=== PATIENT | male | born 1955 | race Caucasian/White ===

== ENCOUNTER 2018-08-14 13:04 | Outpatient (CLI) | payer OTHER ==
--- NOTE | 2018-08-20 16:11 | ULT ---
LOWER EXTREMITY ARTERIAL EVALUATION USING DOPPLER WAVEFORM ANALYSIS AND SEGMENTAL LIMB PRESSURES 08/14/18 Examination today reveals normal Doppler waveforms bilaterally at all levels of the leg with normal a nkle-arm index of greater than 1 and normal toe-brachial index. This will be considered a normal resting arterial study and not consistent with any significant vascu lar claudication.
== END 2018-08-14 13:05 | disposition home or self-care (01) ==
LOC: ULT 13:04
PROVIDERS: ATTEND Nurse Practitioner Family
DX: I73.9 Peripheral vascular disease, unspecified (principal)
CPT/HCPCS: 93922

== ENCOUNTER 2018-09-16 09:58 | Outpatient (CLI) | payer OTHER ==
--- NOTE | 2018-09-16 11:09 | CT ---
LOW DOSE SCREENING CT CHEST: Date: 09/16/18 HISTORY: Personal history of nicotine dependence, current smoker of greater than 40 years. TECHNIQUE: Routine noncontrast low-dose screening chest CT performed with coronal and sagittal reform atted imaging. FINDINGS: Nonspecific mildly prominent lymph nodes are noted in the AP window and paratracheal regions, measuri ng up to 1 cm in short axis dimension, upper limits of normal. Limited assessment of the visualized upper abdomen is unremarkable. There is mild scattered atherosclerotic calcification of the aortic arch and descending thoracic aort a. No pleural, pericardial, or mediastinal fluid. There are scattered centrilobular emphysematous changes noted with an upper lobe predominance, right greater than left. There is no dominant pulmonary parenchymal mass lesion or nodule within the right lung. There is no d ominant pulmonary parenchymal mass lesion or nodule within the left lung. Review of the osseous structures demonstrates no worrisome lytic or blastic bone lesion. IMPRESSION: Lung RADS category 1-negative. Continue annual screening with low-dose chest CT in 12 months. Transcribed Date/Time: 09/16/2018 11:55 AM
== END 2018-09-16 09:59 | disposition home or self-care (01) ==
LOC: CT 09:58
PROVIDERS: ATTEND Internal Medicine Hematology & Oncology
DX: F17.210 Nicotine dependence, cigarettes, uncomplicated (principal)
CPT/HCPCS: G0297

== ENCOUNTER 2018-10-25 06:21 | Day surgery (SDC) | payer OTHER ==
--- NOTE | 2018-10-24 11:00 | HP ---
HISTORY OF PRESENT ILLNESS: Mr. Finn Coffman is a 63-year-old male, comes for a colonoscopy for colon cancer screening. The patient has no specific GI symptoms. His bowel movements are regular. He does have family history of colon cancer. ALLERGIES: NONE. MEDICAL ILLNESSES: Hyperlipidemia. SURGERIES: None. SOCIAL HISTORY: The patient smokes a pack of cigarettes per day. He drinks alcohol socially. PHYSICAL EXAMINATION: VITAL SIGNS: Pulse is 70, blood pressure 130/70. HEENT: Conjunctivae are clear. CARDIOVASCULAR: First and second heart sounds are normal. LUNGS: Clear to auscultation. ABDOMEN: Soft. No organomegaly. No tenderness. No masses. EXTREMITIES: Reveal no edema. ADMITTING DIAGNOSIS: A 63-year-old male, comes for a colonoscopy for colon cancer screening. Job ID: [id number]
[2018-10-24 11:37] VITALS: BMI 30.1
--- NOTE | 2018-10-25 10:34 | OP ---
DATE OF PROCEDURE: 10/25/2018 PROCEDURES PERFORMED: Colonoscopy with polypectomy. PREOPERATIVE DIAGNOSIS: Colon cancer. POSTOPERATIVE DIAGNOSES: 1. Sessile sigmoid polyp, status post snare cautery with good hemostasis. 2. A long pedunculated polyp with a thick stalk in sigmoid colon, status post snare cautery with good hemostasis. 3. Hemorrhoids. PROCEDURES PERFORMED: Colonoscopy with polypectomy. DESCRIPTION OF PROCEDURE: The patient was placed on his left lateral position and was given sedation by Anesthesia Department. A rectal exam was done before the scope was advanced into the rectum. No lesions felt on rectal exam. A [employer]ax video colonoscope was introduced into the rectum and advanced all the way into the cecum. The prep was good. The mucosa appears normal throughout the colon with normal vascular pattern. In the appendiceal orifice, ileocecal wall, and cecum, no pathology. Withdrawal of scope from cecum to ascending colon, hepatic flexure, no pathology seen. In the transverse colon, splenic flexure, and descending colon, no pathology. The patient had a large polyp on a thick stalk. The stalk was quite long and very thick. This was seen in sigmoid colon area. This was removed with snare cautery with good hemostasis. Another small sessile polyp over the sigmoid colon removed with snare cautery with good hemostasis. Retroflexion of scope in the rectum showed hemorrhoids. DISCHARGE PLANNING: This is a 63-year-old male, came for a colonoscopy for colon cancer screening. He underwent colonoscopic polypectomy x2. DISCHARGE RECOMMENDATION: 1. The patient advised to call me if he develops abdominal pain, hematochezia. 2. To come back to clinic in 2 weeks. Job ID: [id number]
== END 2018-10-25 10:00 | disposition home or self-care (01) ==
LOC: SDC 06:21
PROVIDERS: ATTEND Internal Medicine Gastroenterology
PROC: 0DBN8ZZ Excision of Sigmoid Colon, Via Natural or Artificial Opening Endoscopic (ICD-10-PCS; principal; 2018-10-25)
DX: Z12.11 Encounter for screening for malignant neoplasm of colon (principal); D12.5 Benign neoplasm of sigmoid colon; K63.5 Polyp of colon; K64.9 Unspecified hemorrhoids; E78.5 Hyperlipidemia, unspecified; F17.210 Nicotine dependence, cigarettes, uncomplicated; Z80.0 Family history of malignant neoplasm of digestive organs
CPT/HCPCS: 88305

== ENCOUNTER 2022-07-17 20:16 | Emergency (ER) | payer OTHER ==
[2022-07-17 20:47] LABS: #Basophils 0.1 thou/uL (0.0-0.2); #Eosinphils 0.4 thou/uL (0.0-0.7); #Monocytes 0.8 thou/uL (0.11-0.59); #Neutrophils 8.3 thou/uL (1.40-6.50); %Basophils 0.6 % (0.0-1.0); %Eosinophils 3.1 % (0.0-10.0); %Lymphocytes 17.5 % (21.0-51.0); %Monocytes 6.6 % (0.0-10.0); %Neutrophils 72.1 % (42.0-75.0); Hemoglobin 14.9 g/dL (14.0-18.0); Mean Corpuscular Hemoglobin 29.1 pg (27.0-31.0); Mean Corpuscular Volume 88.2 fl (78.0-98.0); Mean Platelet Volume 8.9 fL (7.4-10.4); Platelet Count 241 10x3/uL (130-400); RBC Distribution Width 12.8 % (11.5-14.5); Red Blood Cell (RBC) Count 5.13 mill/uL (4.70-6.10); White Blood Cell (WBC) Count 11.6 10x3/uL (4.8-10.8)
[2022-07-17 21:11] LABS: ALT (SGPT) 53 U/L (8-55); AST (SGOT) 38 U/L (5-34); Albumin 3.8 g/dL (3.4-4.8); Alkaline Phosphatase 117 U/L (40-110); Anion Gap 12 mmol/L (10-20); BUN (Urea Nitrogen) 12 mg/dL (8.4-25.7); Bilirubin, Total 0.4 mg/dL (0.2-1.2); CK (CPK) 85 U/L (30-200); Calc. Creatinine Clearance 0 mL/min (70-130); Calcium 9.6 mg/dL (7.8-10.44); Carbon Dioxide 23 mmol/L (23-31); Chloride 107 mmol/L (98-107); Estimated GFR 94; Globulin 3.3 g/dL (2.4-3.5); Glucose 117 mg/dL (80-115); Lipase 32 U/L (8-78); Potassium 4.1 mmol/L (3.5-5.1); Protein, Total 7.1 g/dL (5.8-8.1); Sodium 138 mmol/L (136-145)
== END 2022-07-17 22:46 | disposition home or self-care (01) ==
LOC: ERS 20:16
DX: R53.1 Weakness (principal); R00.1 Bradycardia, unspecified; D72.829 Elevated white blood cell count, unspecified; F17.210 Nicotine dependence, cigarettes, uncomplicated; Z79.82 Long term (current) use of aspirin
CPT/HCPCS: 36415; 70450; 80048; 82550; 83690; 83735; 83880; 84484; 85025; 93005

== ENCOUNTER 2022-11-24 06:19 | Day surgery (SDC) | payer OTHER ==
[2022-11-09 13:10] VITALS: BMI 32.1
[2022-11-24] MEDS ORDERED: Clindamycin/D5W 600 mg/50 ml Premix Bag ONE (06:58)
[2022-11-24] MEDS ORDERED: CEFAZOLIN 1 GM VIAL ONE ×2 (06:58→08:29)
[2022-11-24] MEDS ORDERED: Gentamicin 80 MG/2 ML VIAL ONE ×2 (06:58→08:29)
[2022-11-24] MEDS ORDERED: Lidocaine 1% (PF) 30 ML VIAL ONE ×2 (06:59→08:30)
[2022-11-24] MEDS ORDERED: LevoFLOXacin 500 mg/D5W 100 ML BAG ONE (07:19)
[2022-11-24] MEDS ORDERED: Propofol 1,000 MG/100 ML VIAL IV ONE (08:40)
[2022-11-24] MEDS ORDERED: fentaNYL 50 mcg/mL 1 mL Vial ONE (08:41)
[2022-11-24] MEDS ORDERED: Glycopyrrolate 0.2 MG/ML 5 ML SYRINGE ONE (08:57)
[2022-11-24] MEDS ORDERED: Lidocaine 1% PF 5 ML VIAL ONE (08:57)
[2022-11-24] MEDS ORDERED: PHENYLEPHRINE-NS 100 MCG/ML 10 ML SYRINGE ONE (08:57)
[2022-11-24] MEDS ORDERED: Propofol 500 MG/50 ML VIAL ONE (10:42)
[2022-11-24] MEDS ORDERED: Fentanyl 250 MCG/5 ML VIAL ONE (11:55)
[2022-11-24] MEDS ORDERED: Ketorolac Tromethamine 30 MG/ML VIAL ONE (12:32)
== END 2022-11-24 15:22 | disposition home or self-care (01) ==
LOC: SDC 06:19
PROVIDERS: ATTEND Internal Medicine Cardiovascular Disease
DX: I49.5 Sick sinus syndrome (principal); B99.9 Unspecified infectious disease; E78.5 Hyperlipidemia, unspecified; Z87.891 Personal history of nicotine dependence; Z95.0 Presence of cardiac pacemaker; Z79.82 Long term (current) use of aspirin; Z79.899 Other long term (current) drug therapy
CPT/HCPCS: 33208; 33233; 33235; 71045; 87070; 87205; 97139; C1785; C1898 ×2; J3010; J0690; J1580; J1885; J1956; J2001; J2704; J3490

== ENCOUNTER 2022-12-07 06:58 | Outpatient (CLI) | payer MEDICARE, OTHER | END 2022-12-07 06:59 | disposition home or self-care (01) | LOC: BICULT 06:58 | PROVIDERS: ATTEND Nurse Practitioner | DX: Z13.6 Encounter for screening for cardiovascular disorders (principal); Z12.2 Encounter for screening for malignant neoplasm of respiratory organs; Z87.891 Personal history of nicotine dependence; I77.811 Abdominal aortic ectasia | CPT/HCPCS: 71271; 76775 ==

== ENCOUNTER 2024-01-24 16:20 | Outpatient (CLI) | payer OTHER | END 2024-01-24 16:21 | disposition home or self-care (01) | LOC: SCSRAD 16:20 | PROVIDERS: ATTEND Family Medicine | DX: R53.83 Other fatigue (principal) | CPT/HCPCS: 71046 ==

== ENCOUNTER 2024-03-27 12:25 | Outpatient (CLI) | payer OTHER | END 2024-03-27 12:26 | disposition home or self-care (01) | LOC: BICCT 12:25 | PROVIDERS: ATTEND Family Medicine | DX: Z12.2 Encounter for screening for malignant neoplasm of respiratory organs (principal); Z87.891 Personal history of nicotine dependence | CPT/HCPCS: 71271 ==

== ENCOUNTER 2025-02-12 15:27 | Outpatient (CLI) | payer OTHER | END 2025-02-12 15:28 | disposition home or self-care (01) | LOC: SCSRAD 15:27 | PROVIDERS: ATTEND Family Medicine | DX: R06.09 Other forms of dyspnea (principal); R53.1 Weakness | CPT/HCPCS: 36415; 71046; 80053; 83880; 85025 ==